=== PATIENT | male | born 1945 | race Caucasian/White ===

== ENCOUNTER 2022-12-30 10:28 | Emergency (ER) | payer BC, OTHER ==
[~2022-12-30] VITALS: Ht 172.7 cm; Wt 95.5 kg
[2022-12-30 10:29] VITALS: TEMP 98.5
[2022-12-30] MEDS ORDERED: ROSU40TA4 PO (10:51)
[2022-12-30] MEDS ORDERED: LISI10TA22 PO (10:52)
[2022-12-30] MEDS ORDERED: ISTA0.5S OP (10:57)
[2022-12-30] MEDS ORDERED: LATA1DRO OP (10:57)
[2022-12-30] MEDS ORDERED: SYNT50TA PO (10:57)
[2022-12-30] MEDS: MORPHINE 2 MG/ML 1ML VIAL IV ONE ×2 (11:55→12:13)
[2022-12-30] MEDS ORDERED: KETOROLAC 30 MG/ML 1ML VIAL IV ONE (11:55)
[2022-12-30 12:18] LABS: BASO % 0.4 % (0.0-1.0); EOS % 0.2 % (0.0-3.0); HEMATOCRIT 44.9 % (42.0-52.0); HEMOGLOBIN 14.6 g/dl (13.5-17.5); LYMPH # 2.8 10^3/uL (1.5-5.0); LYMPH % 29.7 % (24.0-44.0); MEAN CORPUSCULAR HEMOGLOBIN 29.2 pg (27.0-33.0); MEAN CORPUSCULAR HGB CONC 32.5 g/dl (32.0-36.5); MEAN CORPUSCULAR VOLUME 89.8 fl (80.0-96.0); MONO % 10.9 % (2.0-8.0); NEUTROPHILS # 5.5 10^3/uL (1.5-8.5); NEUTROPHILS % 58.1 % (36.0-66.0); PLATELET COUNT, AUTOMATED 187 10^3/uL (150-450); WHITE BLOOD COUNT 9.5 10^3/uL (4.0-10.0)
[2022-12-30 12:36] LABS: ERYTHROCYTE SEDIMENTATION RATE 7 mm/hr (0-20)
[2022-12-30 15:00] VITALS: BP 123/75; O2SAT 96
[2022-12-30] MEDS ORDERED: ASPE4PAD TOP (15:02)
[2022-12-30] MEDS ORDERED: MEDR4PAK PO (15:02)
[2022-12-30] MEDS ORDERED: METH-1164 PO (15:02)
== END 2022-12-30 15:15 | disposition home or self-care (01) ==
LOC: M ED 10:28
DX: M54.32 Sciatica, left side (principal); M51.37 Other intervertebral disc degeneration, lumbosacral region; E78.5 Hyperlipidemia, unspecified; E03.9 Hypothyroidism, unspecified; I10 Essential (primary) hypertension; H40.9 Unspecified glaucoma; Z79.899 Other long term (current) drug therapy
CPT/HCPCS: 72148; 80047; 85025; 85652; 93005; 96374; 96375; 99284; J1885